=== PATIENT | female | born 1950 | race Caucasian/White ===

== ENCOUNTER → 2017-07-31 | Outpatient (CLI) | payer MEDICARE, OTHER ==
[2014-02-20 09:01] VITALS: BMI 29.3
[~2017-07-31] MED LIST: ATOR20TA22 PO; BENZ200C15 PO; CODE118S5 PO; IPRA3AMP21 IH; LISI-347 PO; LOR5/325 PO; Levofloxacin PO; METH4TAB57 PO; METH4TAB63 PO; METHO500 PO; Prednisone PO
--- NOTE | 2017-07-31 17:44 | RADIOLOGY IMAGING REPORT ---
[place] [facility] [place] NAME: WILLIAM AUSTIN : [id number] MR: [id number] V: [id number] EXAM DATE: ORDERING PHYSICIAN: ARLYN JIMENEZ TECHNOLOGIST: Kirsty Saenz PROCEDURE:BILATERAL DIGITAL SCREENING MAMMOGRAM WITH CAD ASSISTED INTERPRETATION & 3D TOMOSYNTHESIS COMPARISON:Prior mammograms 07/02/16, 12/27/15, 10/24/14, 08/17/13. INDICATIONS:SCREENING FINDINGS: A small to moderate amount of fibroglandular tissue is seen throughout the breasts. The parenchymal pattern has remained stable allowing for difference in mammographic technique & patient positioning. There is no evidence of malignant appearing mass, malignant appearing calcifications or other secondary sign of malignancy in either breast. DIAGNOSTIC CATEGORY 1--NEGATIVE. RECOMMENDATIONS: ROUTINE MAMMOGRAM AND CLINICAL EVALUATION. IMPRESSION: BIRADS 1: Negative No significant abnormality is seen. Dictated by: Maria Teresa Matthews M.D. on 07/31/2017 at 11:53 Transcribed by: MARYBETH on 07/31/2017 at 13:15 Approved by: Maria Teresa Matthews M.D. on 07/31/2017 at 17:43 [facility]
== END ==
LOC: MAMO 01:35
PROVIDERS: ATTEND Family Medicine
DX: Z12.31 Encounter for screening mammogram for malignant neoplasm of breast (principal)
CPT/HCPCS: 77063; 77067

== ENCOUNTER → 2017-10-14 | Outpatient (CLI) | payer MEDICARE, OTHER ==
[2014-02-20 09:01] VITALS: BMI 29.3
[~2017-10-14] MED LIST changes: +IPRA3AMP10 IH; -IPRA3AMP21 IH
--- NOTE | 2017-10-14 14:45 | RADIOLOGY IMAGING REPORT ---
FACILITY: [facility] - [place] PATIENT NAME: Shannan Rivas : 1950 MR: [id number] V: [id number] EXAM DATE: ORDERING PHYSICIAN: TRA OTTO TECHNOLOGIST: Location: [facility] Patient: Shannan Rivas : 1950 Visit/Account:[id number] Date of Sevice: 10/14/2017 Exam type: CLAVICLE RIGHT History: Pain in right shoulder right clavicle with no known injury Comparison: Right shoulder performed today. Findings: There are moderate degenerative changes at the right AC joint. There is no evidence of right clavicu lar fracture. The right sternoclavicular joint appears grossly intact IMPRESSION: 1. 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
--- NOTE | 2017-10-14 14:47 | RADIOLOGY IMAGING REPORT ---
FACILITY: [facility] PATIENT NAME: Shannan Rivas : 1950 MR: [id number] V: [id number] EXAM DATE: ORDERING PHYSICIAN: TRA OTTO TECHNOLOGIST: Location: [facility] Patient: Shannan Rivas : 1950 Visit/Account:[id number] Date of Sevice: 10/14/2017 Exam type: SHOULDER MIN 2 VIEWS RIGHT History: Pain in right shoulder, no known injury Comparison: Right clavicle performed today. Findings: There are moderate degenerative changes at the right AC joint. There is no evidence of acute fractur e-dislocation involving the right shoulder. Appears to be moderate narrowing at the right glenohumer al joint IMPRESSION: 1. 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 If pain continues MR may be helpful Report Dictated By: Maria Teresa Matthews MD at 10/14/2017 2:43 PM Report E-Signed By: Maria Teresa Matthews MD at 10/14/2017 2:44 PM WSN:[email or web address]
== END ==
LOC: RAD 11:36
PROVIDERS: ATTEND Physician Assistant Medical
DX: M24.111 Other articular cartilage disorders, right shoulder (principal)

== ENCOUNTER → 2018-09-25 | Outpatient (CLI) | payer MEDICARE, OTHER ==
[2014-02-20 09:01] VITALS: BMI 29.3
--- NOTE | 2018-09-25 15:46 | RADIOLOGY IMAGING REPORT ---
FACILITY: [facility] PATIENT NAME: WILLIAM AUSTIN : [id number] MR: [id number] V: [id number] EXAM DATE: ORDERING PHYSICIAN: ARLYN JIMENEZ TECHNOLOGIST: Sanjuanita Smith PROCEDURE: BILATERAL DIGITAL SCREENING MAMMOGRAM WITH CAD ASSISTED INTERPRETATION & 3D TOMOSYNTHESIS. REASON FOR STUDY: Screening. FAMILY HISTORY OF BREAST CANCER: Sister and 2 maternal aunts. BREAST PROCEDURES/TREATMENTS: None. COMPARISON: 07/31/17, 07/02/16, 12/27/15, 10/24/14, 08/17/13. VIEWS OBTAINED: Bilateral 2D & 3D full field CC & MLO projections. BREAST DENSITY: There are scattered areas of fibroglandular density throughout the breasts. MAMMOGRAM FINDINGS: The parenchymal pattern has remained stable allowing for difference in mammographic technique & patient positioning. IMPRESSION: BIRADS 1: Negative. DIAGNOSTIC CATEGORY 1--NEGATIVE. RECOMMENDATIONS: ROUTINE MAMMOGRAM AND CLINICAL EVALUATION. Dictated by: Maria Teresa Matthews M.D. on 09/25/2018 at 15:03 Transcribed by: MARYBETH on 09/25/2018 at 15:11 Approved by: Maria Teresa Matthews M.D. on 09/25/2018 at 15:42 [facility]
== END ==
LOC: MAMO 00:42
PROVIDERS: ATTEND Family Medicine
DX: Z12.31 Encounter for screening mammogram for malignant neoplasm of breast (principal); Z80.3 Family history of malignant neoplasm of breast
CPT/HCPCS: 77063; 77067